=== PATIENT | male | born 1940 | race American Indian/Alaskan Native ===

== ENCOUNTER 2017-12-23 13:19 | Inpatient (IN) | payer OTHER, BC ==
[~2017-12-23] VITALS: Ht 172.7 cm; Wt 74.4 kg
[2017-12-23] MEDS ORDERED: ACETAMINOPHEN500 MG PO (14:39)
[2017-12-23] MEDS ORDERED: ATORVASTATIN CA80 MG PO (14:40)
[2017-12-23 14:41] VITALS: BP 176/86
[2017-12-23] MEDS ORDERED: CALCIUM 500 MG1 EACH PO (14:41)
[2017-12-23] MEDS ORDERED: VITAMIN D31000 UNIT PO (14:42)
[2017-12-23] MEDS ORDERED: GABAPENTIN300 MG PO (14:43)
[2017-12-23] MEDS ORDERED: HEPARIN SO5000 UNIT4 SC (14:44)
[2017-12-23] MEDS ORDERED: LANSOPRAZOLE30 MG PO (14:44)
[2017-12-23] MEDS ORDERED: METFORMIN HCL500 M4 PO (14:46)
[2017-12-23] MEDS ORDERED: LOPRESSOR50 MG PO (14:46)
[2017-12-23] MEDS ORDERED: FLOMAX0.4 MG PO (14:47)
[2017-12-23] MEDS ORDERED: COUMADIN5 MG PO (14:48)
[2017-12-23 16:28] VITALS: BP 165/80
[2017-12-23 18:34] LABS: INTER. NORMALIZED RATIO 1.4
[2017-12-24] VITALS: BP 149/81
[2017-12-24 05:35] VITALS: BP 158/78
[2017-12-24 08:59] LABS: HEMATOCRIT 40.1 % (38.0-50.0); HEMOGLOBIN 12.6 G/DL (12.5-16.6); MCH 28.7 PG (29.0-34.0); MCHC 31.4 G/DL (30.0-36.0); MCV 91.3 FL (86-99); PLATELET COUNT 305 K/uL (156-360); RBC DIS.WIDTH-CV 16.6 % (11.8-14.6); RBC DIS.WIDTH-SD 52.7 % (39-53); RED BLOOD COUNT 4.39 M/uL (4.00-5.50); WHITE BLOOD COUNT 8.5 K/uL (4.1-10.2)
[2017-12-24 09:07] LABS: INTER. NORMALIZED RATIO 1.6
[2017-12-24 09:27] LABS: ALBUMIN 2.7 G/DL (3.2-4.8); ALKALINE PHOSPHATASE 135 IU/L (3-129); ALT (GPT) 23 IU/L (3-49); AST (GOT) 37 IU/L (2-34); CHLORIDE 104 MEQ/L (99-109); GFR ESTIMATE (CALCULATED) > 59 mL/min/ (58.99-99999); GLUCOSE 137 mg/dL (70-99); POTASSIUM 4.3 MEQ/L (3.7-5.4); SODIUM 138 MEQ/L (136-147); TOTAL BILIRUBIN 1.2 MG/DL (0.0-1.0); TOTAL PROTEIN 5.4 G/DL (6.4-8.3); UREA NITROGEN (BUN) 15 mg/dL (9-23)
[2017-12-24 15:11] VITALS: BP 149/70
[2017-12-25 05:16] VITALS: BP 133/60
[2017-12-25 15:19] VITALS: BP 173/72
[2017-12-25 18:27] VITALS: BP 161/73
[2017-12-26 04:30] VITALS: BP 160/75
[2017-12-26 04:41] LABS: INTER. NORMALIZED RATIO 2.2
[2017-12-26 15:48] VITALS: BP 153/76
[2017-12-27 06:03] VITALS: BP 159/76
[2017-12-27 06:28] LABS: INTER. NORMALIZED RATIO 2.5
[2017-12-27 06:47] LABS: CHLORIDE 101 MEQ/L (99-109); CREATININE 1.1 MG/DL (0.6-1.3); GFR ESTIMATE (CALCULATED) > 59 mL/min/ (58.99-99999); GLUCOSE 120 mg/dL (70-99); POTASSIUM 3.9 MEQ/L (3.7-5.4); SODIUM 140 MEQ/L (136-147); UREA NITROGEN (BUN) 17 mg/dL (9-23)
[2017-12-27 16:07] VITALS: BP 157/67
[2017-12-28 04:33] VITALS: BP 156/73
[2017-12-28 05:16] LABS: BASOPHIL (%) 0.6 % (0-1); BASOPHIL COUNT 0.1 K/uL (0-0.1); EOSINOPHIL (%) 2.9 % (0-5); EOSINOPHIL COUNT 0.3 K/uL (0-0.3); HEMATOCRIT 35.4 % (38.0-50.0); HEMOGLOBIN 11.2 G/DL (12.5-16.6); IMMATURE GRANULOCYTE (%) 0.2 % (0.0-0.7); LYMPHOCYTE COUNT 1.1 K/uL (1.0-2.8); MCH 28.8 PG (29.0-34.0); MCHC 31.6 G/DL (30.0-36.0); MONOCYTE COUNT 0.9 K/uL (0-0.8); NEUTROPHIL (%) 74.3 % (45-76); NEUTROPHIL COUNT 6.6 K/uL (1.8-6.4); PLATELET COUNT 275 K/uL (156-360); RBC DIS.WIDTH-CV 16.6 % (11.8-14.6); RBC DIS.WIDTH-SD 54.5 % (39-53); RED BLOOD COUNT 3.89 M/uL (4.00-5.50); WHITE BLOOD COUNT 8.9 K/uL (4.1-10.2)
[2017-12-28 05:17] LABS: INTER. NORMALIZED RATIO 2.9
[2017-12-28 14:31] VITALS: BP 131/59
[2017-12-29 05:21] LABS: BASOPHIL (%) 0.7 % (0-1); BASOPHIL COUNT 0.1 K/uL (0-0.1); EOSINOPHIL (%) 2.3 % (0-5); EOSINOPHIL COUNT 0.2 K/uL (0-0.3); HEMATOCRIT 34.7 % (38.0-50.0); HEMOGLOBIN 11.1 G/DL (12.5-16.6); IMMATURE GRANULOCYTE (%) 0.3 % (0.0-0.7); LYMPHOCYTE (%) 10.8 % (15-42); MCH 28.9 PG (29.0-34.0); MCV 90.4 FL (86-99); MONOCYTE (%) 9.9 % (3-12); MONOCYTE COUNT 0.9 K/uL (0-0.8); NEUTROPHIL COUNT 6.9 K/uL (1.8-6.4); PLATELET COUNT 284 K/uL (156-360); RBC DIS.WIDTH-CV 16.4 % (11.8-14.6); RBC DIS.WIDTH-SD 53.1 % (39-53); RED BLOOD COUNT 3.84 M/uL (4.00-5.50); WHITE BLOOD COUNT 9.1 K/uL (4.1-10.2)
[2017-12-29 05:23] LABS: INTER. NORMALIZED RATIO 3.3
[2017-12-29 05:27] VITALS: BP 150/70
[2017-12-29 15:19] VITALS: BP 173/88
[2017-12-29 17:39] VITALS: BP 156/75
[2017-12-30 05:18] VITALS: BP 142/65
[2017-12-30 07:18] LABS: INTER. NORMALIZED RATIO 2.8
[2017-12-30 15:52] VITALS: BP 145/72
[2017-12-31 05:43] VITALS: BP 136/73
[2017-12-31 07:26] LABS: INTER. NORMALIZED RATIO 2.5
[2017-12-31 15:40] VITALS: BP 140/65
[2018-01-01 05:33] LABS: INTER. NORMALIZED RATIO 2.8
[2018-01-01 05:49] VITALS: BP 148/70
[2018-01-01 16:37] VITALS: BP 144/67
[2018-01-02 04:46] LABS: INTER. NORMALIZED RATIO 2.8
[2018-01-02 05:40] VITALS: BP 179/82
[2018-01-02 05:58] VITALS: BP 168/70
[2018-01-02 15:48] VITALS: BP 138/72
[2018-01-03 04:45] VITALS: BP 131/63
[2018-01-03 05:35] LABS: BASOPHIL (%) 0.8 % (0-1); BASOPHIL COUNT 0.1 K/uL (0-0.1); EOSINOPHIL (%) 4.3 % (0-5); EOSINOPHIL COUNT 0.3 K/uL (0-0.3); HEMATOCRIT 36.2 % (38.0-50.0); HEMOGLOBIN 11.5 G/DL (12.5-16.6); IMMATURE GRANULOCYTE (%) 0.3 % (0.0-0.7); LYMPHOCYTE (%) 15.4 % (15-42); MCH 28.5 PG (29.0-34.0); MCHC 31.8 G/DL (30.0-36.0); MCV 89.8 FL (86-99); MONOCYTE (%) 12.2 % (3-12); MONOCYTE COUNT 0.8 K/uL (0-0.8); NEUTROPHIL COUNT 4.2 K/uL (1.8-6.4); PLATELET COUNT 271 K/uL (156-360); RBC DIS.WIDTH-CV 15.9 % (11.8-14.6); RBC DIS.WIDTH-SD 52.5 % (39-53); RED BLOOD COUNT 4.03 M/uL (4.00-5.50); WHITE BLOOD COUNT 6.2 K/uL (4.1-10.2)
[2018-01-03 15:12] VITALS: BP 167/77
[2018-01-04 05:08] VITALS: BP 160/80
[2018-01-04 07:13] LABS: INTER. NORMALIZED RATIO 2.8
[2018-01-04 15:40] VITALS: BP 141/66
[2018-01-05 05:36] LABS: INTER. NORMALIZED RATIO 2.5
[2018-01-05 06:06] VITALS: BP 150/75
[2018-01-05 09:41] LABS: BASOPHIL (%) 0.6 % (0-1); EOSINOPHIL (%) 4.5 % (0-5); EOSINOPHIL COUNT 0.3 K/uL (0-0.3); HEMATOCRIT 35.7 % (38.0-50.0); HEMOGLOBIN 11.2 G/DL (12.5-16.6); IMMATURE GRANULOCYTE (%) 0.3 % (0.0-0.7); LYMPHOCYTE (%) 14.5 % (15-42); LYMPHOCYTE COUNT 0.9 K/uL (1.0-2.8); MCH 28.6 PG (29.0-34.0); MCHC 31.4 G/DL (30.0-36.0); MCV 91.3 FL (86-99); MONOCYTE (%) 10.9 % (3-12); MONOCYTE COUNT 0.7 K/uL (0-0.8); NEUTROPHIL (%) 69.2 % (45-76); NEUTROPHIL COUNT 4.4 K/uL (1.8-6.4); PLATELET COUNT 267 K/uL (156-360); RBC DIS.WIDTH-CV 16.2 % (11.8-14.6); RBC DIS.WIDTH-SD 52.9 % (39-53); RED BLOOD COUNT 3.91 M/uL (4.00-5.50); WHITE BLOOD COUNT 6.4 K/uL (4.1-10.2)
[2018-01-05 10:19] LABS: ALBUMIN 2.9 G/DL (3.2-4.8); ALKALINE PHOSPHATASE 154 IU/L (3-129); ALT (GPT) 18 IU/L (3-49); AST (GOT) 37 IU/L (2-34); CHLORIDE 107 MEQ/L (99-109); CREATININE 0.8 MG/DL (0.6-1.3); GFR ESTIMATE (CALCULATED) > 59 mL/min/ (58.99-99999); GLUCOSE 143 mg/dL (70-99); POTASSIUM 4.4 MEQ/L (3.7-5.4); SODIUM 140 MEQ/L (136-147); TOTAL BILIRUBIN 0.8 MG/DL (0.0-1.0); TOTAL PROTEIN 5.7 G/DL (6.4-8.3); UREA NITROGEN (BUN) 25 mg/dL (9-23)
[2018-01-05 15:28] VITALS: BP 171/80
[2018-01-05 18:21] VITALS: BP 176/80
[2018-01-05 21:20] VITALS: BP 158/77
[2018-01-06 05:37] VITALS: BP 162/81
[2018-01-06 06:10] LABS: INTER. NORMALIZED RATIO 2.6
[2018-01-06] MEDS ORDERED: FLOMAX0.4 MG PO (08:53)
[2018-01-06] MEDS ORDERED: LOPRESSOR50 MG PO (08:53)
[2018-01-06] MEDS ORDERED: METFORMIN HCL500 M4 PO (08:53)
[2018-01-06] MEDS ORDERED: ATORVASTATIN CA80 MG PO (08:53)
[2018-01-06] MEDS ORDERED: GABAPENTIN300 MG PO (08:53)
[2018-01-06] MEDS ORDERED: THERAGRAN1 TABLET PO (08:53)
[2018-01-06] MEDS ORDERED: LANSOPRAZOLE30 MG PO (08:53)
[2018-01-06] MEDS ORDERED: FOLIC ACID1 MG PO (08:53)
[2018-01-06] MEDS ORDERED: ASCORBIC ACID500 M3 PO (08:53)
[2018-01-06] MEDS ORDERED: COUMADIN3 MG PO (08:55)
== END 2018-01-06 14:15 | disposition home health service (06) | DRG 945 ==
LOC: 3WEST 13:19 → ENPENDDIS 01-06 → 3WEST 01-06 14:15
PROVIDERS: Internal Medicine Pulmonary Disease; Physical Medicine & Rehabilitation Pain Medicine; Specialist
PROC: F07M0ZZ Range of Motion and Joint Mobility Treatment of Musculoskeletal System - Whole Body (ICD-10-PCS; principal; 2017-12-23)
DX: S36.11 Injury of liver (principal); E87.2 Acidosis; J98.11 Atelectasis; N17.9 Acute kidney failure, unspecified; I48.1 Persistent atrial fibrillation; E44.1 Mild protein-calorie malnutrition; D62 Acute posthemorrhagic anemia; J90 Pleural effusion, not elsewhere classified; E87.6 Hypokalemia; S27.321D Contusion of lung, unilateral, subsequent encounter; S27.2XXD Traumatic hemopneumothorax, subsequent encounter; S36.899D Unspecified injury of other intra-abdominal organs, subsequent encounter; S22.5XXD Flail chest, subsequent encounter for fracture with routine healing; E78.5 Hyperlipidemia, unspecified; E83.51 Hypocalcemia; E86.1 Hypovolemia; I10 Essential (primary) hypertension; I25.10 Atherosclerotic heart disease of native coronary artery without angina pectoris; K21.9 Gastro-esophageal reflux disease without esophagitis; N40.0 Benign prostatic hyperplasia without lower urinary tract symptoms; I48.2 Chronic atrial fibrillation; E87.70 Fluid overload, unspecified; E77.8 Other disorders of glycoprotein metabolism; F02.80 Dementia in other diseases classified elsewhere, unspecified severity, without behavioral disturbance, psychotic disturbance, mood disturbance, and anxiety; G30.0 Alzheimer's disease with early onset; R79.1 Abnormal coagulation profile; T45.515A Adverse effect of anticoagulants, initial encounter; Z60.2 Problems related to living alone; E11.65 Type 2 diabetes mellitus with hyperglycemia; R26.9 Unspecified abnormalities of gait and mobility; W18.11XD Fall from or off toilet without subsequent striking against object, subsequent encounter; Z79.01 Long term (current) use of anticoagulants; I25.2 Old myocardial infarction; Z87.442 Personal history of urinary calculi; Z95.1 Presence of aortocoronary bypass graft; Z95.5 Presence of coronary angioplasty implant and graft; Z68.24 Body mass index [BMI] 24.0-24.9, adult; I69.321 Dysphasia following cerebral infarction; Z79.84 Long term (current) use of oral hypoglycemic drugs
CPT/HCPCS: 71046; 80048; 80053; 82948; 85025; 85027; 85610; 92507 GN; 92523 GN; 97110 GO; 97530 GP; A6214; G0515 GN; G0515 GO; J1644; J1815